=== PATIENT | female | born 1945 | race Caucasian/White ===

== ENCOUNTER → 2018-11-13 | Outpatient (CLI) | payer MEDICARE, BC ==
[~2018-11-13] MED LIST: REGADENOSON 0.4 MG/5 ML DISP.SYRIN. IV ONE
--- NOTE | 2018-11-14 11:19 | PCVCIMAG ---
APPROVED REPORT Imaging Protocol: Rest Tc-99m/Stress Tc-99m 1 day Study performed: 11/13/2018 09:56:27 Indication: CAD , Dyspnea, Palpitations Patient Location: Out-Patient Stress Nurse: Amy Child RN, Angela Mckinley RN AR Tech:Mar NISH AlfonsoMT Ht: 5 ft 3 in Wt: 230 lbs BSA: 2.05 m2 HR: 77 bpm BP: 123/80 mmHg BMI: 40.7 Rhythm: Sinus Rhythm, nonspecific T abnormalities Medical History Medical History: HTN, Hyperlipidemia, CAD Medications: Atorvastatin,Zetia, Synthroid, Serzone, Spiriva, Olmesartan, Amlodipine-HCTZ Allergies: Advair Cardiac Risk Factors: Age Pretest Chest Pain Characteristics: No chest pain Exercise History: Sedentary Physical Disabilities: Back Resting Data Rest SPECT myocardial perfusion imaging was performed in supine position 45 minutes following the intravenous injection of 15.1 mCi of Tc-99m Sestamibi. Time of rest injection: 0900 Date: 11/13/2018 Administration Route: IV Administration Site: Left AC Pharmacologic Stress Pharmacologic stress test was performed by injecting Regadenoson 0.4 mg IV push over 10-15 seconds immediately followed by the intravenous injection of 41 mCi of Tc-99m Sestamibi. Time of stress injection: 1040 Date: 11/13/2018 Administration Route: IV Administration Site: Left AC Gated Stress SPECT was performed 45 minutes after stress injection. The images were gated to evaluate regional wall motion and calculate left ventricular ejection fraction. Stress Test Details Stress Test: Pharmacologic stress testing performed using 0.4 mg of regadenoson per 5 mL given IV over 10 seconds. Reason for pharmacologic stress test: Back issues. HRMax Heart Rate (APMHR): 149 bpm Resting HR: 77 bpmTarget HR (85% APMHR): 126 bpm Max HR Achieved: 93 bpm % of APMHR: 62 Recovery HR: 81 bpm BP Resting BP: 123/80 mmHg Max BP: 134/80 mmHg Recovery BP: 155/67 mmHg ECG Resting ECG: Sinus Rhythm, nonspecific T abnormalities Stress ECG: Sinus Rhythm, nonspecific T abnormalities ST Change: None Maximum ST Deviation: 0 mm Arrhythmia: None Recovery ECG: Sinus Rhythm, nonspecific T abnormalities Recovery ST Change: None Recovery ST Deviation: 0 mm Recovery Arrhythmia: None Clinical Reason for Termination: Completed protocol Stress Symptoms: None Exercise duration: 0 min 55 sec Stress ECG Conclusion ECG: Non-ischemic Clinical: Non-ischemic Study Quality Study: Good Study Data Post stress, the left ventricular ejection was 73%.. SSS: 0 SRS: 0 SDS: 0 TID = 0.81. Perfusion No evidence of stress induced ischemia or prior myocardial infarction. Wall Motion Normal left ventricular size and function with no regional wall motion abnormalities. Nuclear Conclusion No evidence of stress induced ischemia or prior myocardial infarction. Normal left ventricular size and function with no regional wall motion abnormalities. Post stress, the left ventricular ejection was 73%. No change since prior study dated August 2017. Interpreted by: Yahir Oshea MD Electronically Approved: 11/13/2018 15:06:19 <Conclusion> ECG: Non-ischemic Clinical: Non-ischemic
--- NOTE | 2018-11-17 16:21 | PCVCIMAG ---
APPROVED REPORT Study performed: 11/13/2018 08:02:23 EXAM: Comprehensive 2D, Doppler, and color-flow Echocardiogram Patient Location: Echo lab Room #: 2Status: routine BSA: 2.05 HR: 80 bpmBP: 123/80 mmHg Other Information Study Quality: Adequate Risk Factors: Cardiac Risk Factors: HTN, Hyperlipidemia Indications Dyspnea CAD Palpitations Peripheral Edema Hypertension/HDD 2D Dimensions IVSd: 6.72 (7-11mm)LVOT Diam: 20.48 (18-24mm) LVDd: 46.44 mm PWd: 7.90 (7-11mm)Ascending Ao: 25.12 (22-36mm) LVDs: 22.45 (25-40mm) Left Atrium: 32.95 (27-40mm) Aortic Root: 20.55 mm LV Single Plane 4CH: 66.36 % LV Single Plane 2CH: 72.40 % Volumes Left Atrial Volume (Systole) Single Plane 4CH: 77.98 mLSingle Plane 2CH: 56.20 mL Biplane LA Volume: 70.00 mLLA ESV Index: 34.00 mL/m2 Aortic Valve AoV Peak Alonso.: 1.66 m/s AO Peak Gr.: 11.07 mmHgLVOT Max P.25 mmHg LVOT Max V: 1.44 m/s COREEN Vmax: 2.84 cm2 Mitral Valve E/A Ratio: 0.8 MV Decel. Time: 173.45 ms MV E Max Alonso.: 0.70 m/s MV A Alonso.: 0.87 m/s IVRT: 51.90 ms TDI E/Lateral E': 5.83E/Medial E': 10.00 Medial E' Alonso.: 0.07 m/s Lateral E' Alonso.: 0.12 m/s Pulmonary Valve PV Peak Laonso.: 1.10 m/sPV Peak Gr.: 4.86 mmHg Pulmonary Vein P Vein S: 0.67 m/sP Vein A: 0.37 m/s P Vein D: 0.51 m/sP Vein A Dur.: 103.8 msec P Vein S/D Ratio: 1.31 Tricuspid Valve TR Peak Alonso.: 1.46 m/s TR Peak Gr.: 8.49 mmHg TV Vmax: 0.61 m/sPA Pressure: 16.00 mmHg Left Ventricle The left ventricle is normal size. There is normal LV segmental wall motion. There is normal left ventricular wall thickness. Left ventricular systolic function is normal. The left ventricular ejection fraction is within the normal range. LVEF is 65-70%. Mild diastolic dysfunction is present (impaired relaxation pattern). Right Ventricle The right ventricle is normal size. The right ventricular systolic function is normal. Atria The left atrium size is normal. The right atrium size is normal. Aortic Valve Aortic valve is trileaflet. Aortic valve leaflets are sclerotic but open well. No aortic regurgitation is present. There is no aortic valvular stenosis. Mitral Valve The mitral valve is normal in structure. There is no mitral valve regurgitation noted. No evidence of mitral valve stenosis. Tricuspid Valve The tricuspid valve is normal in structure. Trace tricuspid regurgitation with a PA pressure of 16 mmHgz. Pulmonic Valve The pulmonary valve is normal in structure. There is no pulmonic valvular regurgitation. Great Vessels The aortic root is normal in size. The ascending aorta is normal in size. Aortic arch is normal in caliber. IVC is normal in size and collapses >50% with inspiration. Pericardium There is no pericardial effusion. There is no pleural effusion. <Conclusion> The left ventricle is normal size. LVEF is 65-70%. Mild diastolic dysfunction is present (impaired relaxation pattern). The right ventricle is normal size. The left atrium size is normal. Aortic valve is trileaflet. Aortic valve leaflets are sclerotic but open well. There is no aortic valvular stenosis. There is no mitral valve regurgitation noted. Trace tricuspid regurgitation with a PA pressure of 16 mmHgz. The aortic root is normal in size. There is no pericardial effusion.
== END | disposition home or self-care (01) ==
LOC: PCVCIMAG 08:04
PROVIDERS: ATTEND Internal Medicine Cardiovascular Disease
DX: I25.119 Atherosclerotic heart disease of native coronary artery with unspecified angina pectoris (principal); R06.09 Other forms of dyspnea; R00.2 Palpitations; R60.0 Localized edema; I10 Essential (primary) hypertension
CPT/HCPCS: 78452; 93017; 93306; A9500; J2785